=== PATIENT | male | born 1955 | race Two or more races ===

== ENCOUNTER 2017-09-17 12:39 | Emergency (ER) | payer OTHER ==
[2017-09-17 12:48] VITALS: BP 150/89; PULSE 61; TEMP 97.7; BMI 29.8
[2017-09-17 13:20] LABS: URINE APPEARANCE CLEAR; URINE BILIRUBIN NEGATIVE (<2.0 mg/dL); URINE COLOR LTYELLOW; URINE GLUCOSE (UA) 3+ (NEGATIVE); URINE KETONE NEGATIVE (NEGATIVE); URINE LEUK ESTERASE NEGATIVE (NEGATIVE); URINE NITRITE NEGATIVE (NEGATIVE); URINE PROTEIN NEGATIVE (NEGATIVE); URINE UROBILINOGEN NEGATIVE mg/dL (0.2-1.0)
--- NOTE | 2017-09-17 14:05 | PDOC ---
History of Present Illness - General Chief Complaint: Wound Stated Complaint: penile INFECTION Time Seen by Provider: 09/17/17 12:56 - History of Present Illness Initial Comments: 09/17/17 14:00 61-year-old male with 10 days of penis pain and lesions. He denies feavers, chills or night sweats, no nausea vomiting or abdominal pain no dysuria or discharge. Severity: moderate Past History - Past Medical History Allergies/Adverse Reactions: Allergies Allergy/AdvReac Type Severity Reaction Status Date / Time No Known Allergies Allergy Verified 09/17/17 12:48 Home Medications: Ambulatory Orders Aspirin [ASA -] 81 mg PO DAILY 01/21/12 Cetirizine HCl [All Day Allergy] 10 mg PO DAILY 01/21/12 Clopidogrel Bisulfate [Plavix -] 75 mg PO DAILY 01/21/12 Dodson-3 Acid Ethyl Esters [Lovaza -] 1,000 mg PO TID 01/21/12 Pantoprazole Sodium [Protonix -] 20 mg PO DAILY 01/21/12 Ranolazine [Ranexa] 500 mg PO BID 01/21/12 Atorvastatin Calcium 40 mg PO DAILY 03/10/16 Cyanocobalamin Vit B-12 Inj. [Vitamin B12 Injection -] 1,000 mcg IM WEEKLY 03/10 Linagliptin/Metformin HCl [Jentadueto 2.5 mg-850 mg Tab] 1 each PO BID 03/10/16 Losartan Potassium [Cozaar -] 25 mg PO DAILY 03/10/16 Acyclovir [Zovirax -] 400 mg PO TID #30 tablet 09/17/17 Cardiac Disorders: Yes (CAD, STENT PLACEMENTX4) COPD: No Diabetes: Yes HTN: Yes Hypercholesterolemia: Yes - Surgical History Cardiac Surgery: Yes (CAD, STENT PLACEMENTX4) - Suicide/Smoking/Psychosocial Hx Smoking Status: Yes Smoking History: Never smoked Years of Tobacco Use: 35 Have you smoked in the past 12 months: No Number of Cigarettes Smoked Daily: 0 Information on smoking cessation initiated: No Hx Alcohol Use: No Drug/Substance Use Hx: No Substance Use Type: None Review of Systems - Review of Systems Constitutional: Yes: See HPI *Physical Exam - Vital Signs Last Vital Signs Temp Pulse Resp BP Pulse Ox 97.7 F 61 16 150/89 96 09/17/17 12:44 09/17/17 12:44 09/17/17 12:44 09/17/17 12:44 09/17/17 12:44 - Physical Exam Comments: 09/17/17 14:01 General Appearance: Well-developed, well-nourished A&O 3 NAD Head: NC/AT Ears: External auditory canals are normal and clear Nose: Normal no discharge Neck: Supple nontender without lymphadenopathy masses Cardiac: S1 and S2 without murmurs no peripheral edema cyanosis or pallor; extremities are warm and well-perfused; capillary refill is less than 2 seconds without carotid bruits Lungs: CTA and Percussion no rales or rhonchi or wheezing breath sounds are full bilaterally Abdomen: Positive bowel sounds; soft nondistended, nontender, no guarding or rebound tenderness; no masses Musculoskeletal; Adequately aligned spine range of motion intact to spine and extremities Neurologic: Cranial nerves II-XII are grossly intact strength and sensation are symmetric and intact cerebellar testing is negative Skin: Normal color and temperature normal texture turgor no lesions or eruptions : Pesin is normal color and temperature, there is no discharge, there is a sun cm ulcerative lesion on the undersurface of the penis ED Treatment Course - ADDITIONAL ORDERS Additional order review: Laboratory Results 09/17/17 13:13 Urine Color Ltyellow Urine Appearance Clear Urine pH 5.0 Ur Specific [place] 1.030 Urine Protein Negative Urine Glucose (UA) 3+ H Urine Ketones Negative Urine Blood Negative Urine Nitrite Negative Urine Bilirubin Negative Urine Urobilinogen Negative Ur Leukocyte Esterase Negative *DC/Admit/Observation/Transfer Diagnosis at time of Disposition: HSV (herpes simplex virus) infection - Prescriptions Prescriptions: Acyclovir [Zovirax -] 400 mg PO TID #30 tablet - Referrals Referrals: Spenser Van MD [Primary Care Provider] - Valentina Foy MD [Staff Physician] - - Patient Instructions Additional Instructions: Follow up with infectious disease. Return to ER if symptoms worsen or go unresolved. - Post Discharge Activity
== END 2017-09-17 14:18 | disposition home or self-care (01) ==
LOC: JERFT 12:39
DX: A60.01 Herpesviral infection of penis (principal); I25.10 Atherosclerotic heart disease of native coronary artery without angina pectoris; I10 Essential (primary) hypertension; Z95.5 Presence of coronary angioplasty implant and graft; E78.00 Pure hypercholesterolemia, unspecified; E11.9 Type 2 diabetes mellitus without complications
CPT/HCPCS: 81003; 99281-25

== ENCOUNTER 2022-10-26 18:09 | Emergency (ER) | payer OTHER ==
[2022-10-26 18:15] VITALS: PULSE 72; RESP 19; TEMP 98.6; BMI 27.1
[2022-10-26] MEDS ORDERED: KETOROLAC TROMETHAMINE 15 MG/ML VIAL IM ONE (19:52)
[2022-10-26] MEDS ORDERED: ACETAMINOPHEN 500 MG TABLET (FP) PO ONE (19:52)
[2022-10-26] MEDS ORDERED: ACETAMINOPHEN 500 MG TABLET (FP) ONE (19:53)
[2022-10-26] MEDS ORDERED: KETOROLAC TROMETHAMINE 15 MG/ML VIAL ONE (19:53)
[2022-10-26 20:26] LABS: BASO % 0.4 % (0-2.0); EOS % 2.7 % (0-4.5); HEMATOCRIT 43.9 % (35.4-49); HEMOGLOBIN 15.2 GM/dL (11.7-16.9); LYMPH % 27.6 % (8-40); MCH 29.5 pg (25.7-33.7); MCHC 34.6 g/dl (32.0-35.9); MEAN CELL VOLUME 85.4 fl (80-96); MEAN PLT VOLUME 7.1 fl (7.5-11.1); NEUT % 61.3 % (42.8-82.8); PLATELET COUNT 219 10^3/uL (134-434); RBC 5.13 M/mm3 (4.00-5.60); RDW 13.5 % (11.9-15.9); WHITE BLOOD COUNT 7.6 K/mm3 (4.0-10.0)
[2022-10-26 20:27] LABS: PH,URINE 5.5 (5.0-8.0); URINE APPEARANCE CLEAR; URINE BILIRUBIN NEGATIVE (NEGATIVE); URINE COLOR YELLOW; URINE GLUCOSE (UA) 3+ (NEGATIVE); URINE KETONE NEGATIVE (NEGATIVE); URINE LEUK ESTERASE NEGATIVE (NEGATIVE); URINE NITRITE NEGATIVE (NEGATIVE); URINE PROTEIN NEGATIVE (NEGATIVE); URINE UROBILINOGEN 0.2 mg/dL (0.2-1.0)
[2022-10-26 20:41] LABS: POTASSIUM 4.4 mmol/L (3.5-5.1)
[2022-10-26 20:43] LABS: CALCIUM 9.2 mg/dL (8.5-10.1)
[2022-10-26 20:44] LABS: ALBUMIN 3.6 g/dl (3.4-5.0); BLOOD UREA NITROGEN 17.4 mg/dL (7-18)
[2022-10-26 20:47] LABS: CREATININE 0.9 mg/dL (0.55-1.3)
[2022-10-26 20:48] LABS: BILIRUBIN,TOTAL 0.3 mg/dL (0.2-1); TOT PROT 7.5 g/dl (6.4-8.2)
[2022-10-26 22:36] VITALS: BP 158/75
== END 2022-10-26 23:39 | disposition home or self-care (01) ==
LOC: JERFT 18:09
PROC: 3E0233Z Introduction of Anti-inflammatory into Muscle, Percutaneous Approach (ICD-10-PCS; principal; 2022-10-26)
DX: M54.50 Low back pain, unspecified (principal)
CPT/HCPCS: 36415; 71275-TC; 74174-TC; 80053; 81003; 85025; 87086; 99285-25; Q9967

== ENCOUNTER 2022-11-13 12:17 | Observation (INO) | payer OTHER ==
[2022-11-13 12:43] LABS: BASO % 0.6 % (0-2.0); EOS % 1.7 % (0-4.5); HEMATOCRIT 44.1 % (35.4-49); HEMOGLOBIN 14.7 GM/dL (11.7-16.9); LYMPH % 15.7 % (8-40); MCH 29.3 pg (25.7-33.7); MCHC 33.3 g/dl (32.0-35.9); MEAN CELL VOLUME 87.9 fl (80-96); MEAN PLT VOLUME 7.5 fl (7.5-11.1); MONO % 8.7 % (3.8-10.2); NEUT % 73.3 % (42.8-82.8); PLATELET COUNT 231 10^3/uL (134-434); RBC 5.02 M/mm3 (4.00-5.60); RDW 13.2 % (11.9-15.9); WHITE BLOOD COUNT 8.6 K/mm3 (4.0-10.0)
[2022-11-13 12:50] LABS: INR 1.01 (0.83-1.09); PROTHROMBIN TIME (PATIENT) 11.7 SEC (9.7-13.0)
[2022-11-13 13:12] LABS: POTASSIUM 4.6 mmol/L (3.5-5.1)
[2022-11-13 13:14] LABS: CALCIUM 9.1 mg/dL (8.5-10.1)
[2022-11-13 13:15] LABS: ALBUMIN 3.5 g/dl (3.4-5.0); BLOOD UREA NITROGEN 13.8 mg/dL (7-18)
[2022-11-13 13:19] LABS: BILIRUBIN,TOTAL 0.4 mg/dL (0.2-1)
[2022-11-13 13:54] LABS: N-TERMINAL BNP 602.1 pg/ml (5-125)
[2022-11-13] MEDS: ATENOLOL 25 MG TABLET (FP) PO SCH (19:25)
[2022-11-13] MEDS ORDERED: ATENOLOL 25 MG TABLET (FP) ONE (19:30)
[2022-11-13] MEDS ORDERED: ALBUTEROL SO4 HFA INHALER IH PRN (20:12)
[2022-11-13] MEDS ORDERED: INSULIN (NOVOLOG) ASPART 100 UNITS/ML 10ML VIAL ONE (21:23)
[2022-11-13] MEDS: INSULIN SLIDING SCALE (NOVOLOG) 1 VIAL SQ SCH (21:25)
[2022-11-13] MEDS: ATORVASTATIN CA 40 MG TABLET (FP) PO SCH (21:25)
[2022-11-13 22:26] VITALS: BMI 27.9
[2022-11-14] MEDS: INSULIN SLIDING SCALE (NOVOLOG) 1 VIAL SQ SCH ×4 (06:19→21:42)
[2022-11-14] MEDS: ATENOLOL 25 MG TABLET (FP) PO SCH (09:56)
[2022-11-14] MEDS: RANOLAZINE E.R. 500 MG TABLET (FP) PO SCH ×2 (09:56→21:42)
[2022-11-14] MEDS: LORATADINE 10 MG TABLET PO SCH (09:57)
[2022-11-14] MEDS: ASPIRIN 81 MG CHEWABLE TABLETS PO SCH (09:57)
[2022-11-14] MEDS: CLOPIDOGREL BISULFATE 75 MG TABLET (FP) PO SCH (09:57)
[2022-11-14] MEDS: FAMOTIDINE 20 MG TABLET PO SCH ×2 (09:57→21:42)
[2022-11-14] MEDS: POTASSIUM CHLORIDE 10 MEQ in SODIUM CHLORIDE 0.45% 1,000 ML IVPB SCH (11:32)
[2022-11-14 12:49] LABS: POTASSIUM 4.7 mmol/L (3.5-5.1)
[2022-11-14 12:50] LABS: CALCIUM 9.7 mg/dL (8.5-10.1)
[2022-11-14 12:51] LABS: BLOOD UREA NITROGEN 12.2 mg/dL (7-18)
[2022-11-14 12:54] LABS: CREATININE 0.8 mg/dL (0.55-1.3)
[2022-11-14 13:02] LABS: BASO % 0.5 % (0-2.0); HEMATOCRIT 44.8 % (35.4-49); HEMOGLOBIN 14.8 GM/dL (11.7-16.9); LYMPH % 17.5 % (8-40); MCH 29.3 pg (25.7-33.7); MCHC 33.1 g/dl (32.0-35.9); MEAN CELL VOLUME 88.6 fl (80-96); MEAN PLT VOLUME 7.7 fl (7.5-11.1); MONO % 9.3 % (3.8-10.2); NEUT % 70.7 % (42.8-82.8); PLATELET COUNT 231 10^3/uL (134-434); RBC 5.05 M/mm3 (4.00-5.60); RDW 13.4 % (11.9-15.9); WHITE BLOOD COUNT 7.8 K/mm3 (4.0-10.0)
[2022-11-14] MEDS ORDERED: INSULIN (NOVOLOG) ASPART 100 UNITS/ML 10ML VIAL ONE (21:41)
[2022-11-14] MEDS: ATORVASTATIN CA 40 MG TABLET (FP) PO SCH (21:42)
[2022-11-15] MEDS: POTASSIUM CHLORIDE 10 MEQ in SODIUM CHLORIDE 0.45% 1,000 ML IVPB SCH ×2 (04:00→15:54)
[2022-11-15] MEDS: INSULIN SLIDING SCALE (NOVOLOG) 1 VIAL SQ SCH ×4 (06:16→21:59)
[2022-11-15] MEDS: ATENOLOL 25 MG TABLET (FP) PO SCH (08:00)
[2022-11-15] MEDS ORDERED: REGADENOSON 0.4 MG/5 ML PRE-FILLED SYRINGE IVPUSH ONE ×2 (09:28→09:30)
[2022-11-15] MEDS: CLOPIDOGREL BISULFATE 75 MG TABLET (FP) PO SCH (11:36)
[2022-11-15] MEDS: ASPIRIN 81 MG CHEWABLE TABLETS PO SCH (11:36)
[2022-11-15] MEDS: LORATADINE 10 MG TABLET PO SCH (11:36)
[2022-11-15] MEDS: RANOLAZINE E.R. 500 MG TABLET (FP) PO SCH ×2 (11:36→21:52)
[2022-11-15] MEDS: FAMOTIDINE 20 MG TABLET PO SCH ×2 (11:36→21:52)
[2022-11-15] MEDS: LOSARTAN POTASSIUM 50 MG TABLET PO SCH (11:37)
[2022-11-15] MEDS ORDERED: INSULIN (NOVOLOG) ASPART 100 UNITS/ML 10ML VIAL ONE ×2 (16:23→21:59)
[2022-11-15] MEDS: ATORVASTATIN CA 40 MG TABLET (FP) PO SCH (21:52)
[2022-11-16] MEDS: POTASSIUM CHLORIDE 10 MEQ in SODIUM CHLORIDE 0.45% 1,000 ML IVPB SCH (06:19)
[2022-11-16] MEDS ORDERED: INSULIN (NOVOLOG) ASPART 100 UNITS/ML 10ML VIAL ONE (06:20)
[2022-11-16] MEDS: INSULIN SLIDING SCALE (NOVOLOG) 1 VIAL SQ SCH (06:20)
[2022-11-16 06:25] VITALS: RESP 18
[2022-11-16 09:01] VITALS: BP 146/79; PULSE 72; TEMP 97.7
[2022-11-16] MEDS: FAMOTIDINE 20 MG TABLET PO SCH (09:21)
[2022-11-16] MEDS: RANOLAZINE E.R. 500 MG TABLET (FP) PO SCH (09:21)
[2022-11-16] MEDS: ASPIRIN 81 MG CHEWABLE TABLETS PO SCH (09:21)
[2022-11-16] MEDS: LORATADINE 10 MG TABLET PO SCH (09:21)
[2022-11-16] MEDS: LOSARTAN POTASSIUM 50 MG TABLET PO SCH (09:21)
[2022-11-16] MEDS: CLOPIDOGREL BISULFATE 75 MG TABLET (FP) PO SCH (09:22)
== END 2022-11-16 11:56 | disposition home or self-care (01) ==
LOC: JER 12:17 → JERBED 15:13 → J4W 21:04
PROVIDERS: ADMIT Family Medicine; ATTEND Family Medicine
PROC: 3E013VG Introduction of Insulin into Subcutaneous Tissue, Percutaneous Approach (ICD-10-PCS; principal; 2022-11-13)
PROC: 3E0337Z Introduction of Electrolytic and Water Balance Substance into Peripheral Vein, Percutaneous Approach (ICD-10-PCS; 2022-11-13)
DX: I25.10 Atherosclerotic heart disease of native coronary artery without angina pectoris (principal); I11.9 Hypertensive heart disease without heart failure; E78.5 Hyperlipidemia, unspecified; E11.9 Type 2 diabetes mellitus without complications
CPT/HCPCS: 0241U-QW; 36415; 71045-TC-FY; 71275-TC; 78452-TC; 80048; 80053; 80061; 82962; 83036; 83880; 84484; 85025; 85610; 85651; 86038; 86140; 93005; 93010; 93017; 93306-TC; 96372; 99285-25; A9502; G0378; J2785; Q9967

== ENCOUNTER 2024-03-27 13:28 | Inpatient (IN) | payer OTHER ==
[2024-03-27 15:10] LABS: BASO % 0.4 % (0-2.0); EOS % 2.4 % (0-4.5); HEMATOCRIT 42.8 % (35.4-49); LYMPH % 17.1 % (8-40); MCH 27.2 pg (25.7-33.7); MCHC 32.7 g/dl (32.0-35.9); MEAN CELL VOLUME 83.4 fl (80-96); MEAN PLT VOLUME 7.7 fl (7.5-11.1); MONO % 9.7 % (3.8-10.2); NEUT % 70.4 % (42.8-82.8); PLATELET COUNT 180 10^3/uL (134-434); RBC 5.13 M/mm3 (4.00-5.60); RDW 15.3 % (11.9-15.9); WHITE BLOOD COUNT 7.2 K/mm3 (4.0-10.0)
[2024-03-27 15:45] LABS: POTASSIUM 4.7 mmol/L (3.5-5.1)
[2024-03-27 15:47] LABS: ALBUMIN 3.3 g/dl (3.4-5.0); BLOOD UREA NITROGEN 21.4 mg/dL (7-18); CALCIUM 8.9 mg/dL (8.5-10.1)
[2024-03-27 15:52] LABS: BILIRUBIN,TOTAL 0.5 mg/dL (0.2-1); TOT PROT 6.6 g/dl (6.4-8.2)
[2024-03-27 15:55] LABS: N-TERMINAL BNP 1294.3 pg/ml (5-125)
[2024-03-27 16:27] LABS: HIV INTERPRETATION NEGATIVE (NEGATIVE)
[2024-03-27] MEDS ORDERED: FUROSEMIDE 40 MG/4 ML INJECTABLE VIAL ONE (16:35)
[2024-03-27] MEDS: FUROSEMIDE 40 MG/4 ML INJECTABLE VIAL IVPUSH ONE (16:42)
[2024-03-27] MEDS: ATORVASTATIN CA 40 MG TABLET (FP) PO SCH (23:10)
[2024-03-28 06:59] LABS: BASO % 0.6 % (0-2.0); EOS % 3.3 % (0-4.5); HEMATOCRIT 42.7 % (35.4-49); HEMOGLOBIN 13.8 GM/dL (11.7-16.9); LYMPH % 20.7 % (8-40); MCHC 32.3 g/dl (32.0-35.9); MEAN CELL VOLUME 83.6 fl (80-96); MEAN PLT VOLUME 7.7 fl (7.5-11.1); MONO % 10.2 % (3.8-10.2); NEUT % 65.2 % (42.8-82.8); PLATELET COUNT 170 10^3/uL (134-434); RBC 5.11 M/mm3 (4.00-5.60); RDW 15.2 % (11.9-15.9); WHITE BLOOD COUNT 8.1 K/mm3 (4.0-10.0)
[2024-03-28 07:34] LABS: POTASSIUM 4.1 mmol/L (3.5-5.1)
[2024-03-28 07:37] LABS: ALBUMIN 3.2 g/dl (3.4-5.0); BLOOD UREA NITROGEN 20.1 mg/dL (7-18); CALCIUM 8.8 mg/dL (8.5-10.1)
[2024-03-28 07:41] LABS: CREATININE 0.8 mg/dL (0.55-1.3)
[2024-03-28 07:42] LABS: BILIRUBIN,TOTAL 0.6 mg/dL (0.2-1); TOT PROT 6.1 g/dl (6.4-8.2)
[2024-03-28] MEDS: LOSARTAN POTASSIUM 50 MG TABLET PO SCH (09:35)
[2024-03-28] MEDS: ATENOLOL 25 MG TABLET (FP) PO SCH (09:35)
[2024-03-28] MEDS: CLOPIDOGREL BISULFATE 75 MG TABLET (FP) PO SCH (09:35)
[2024-03-28] MEDS: FUROSEMIDE 40 MG/4 ML INJECTABLE VIAL IVPUSH SCH (09:36)
[2024-03-28] MEDS: amLODIPine BESYLATE 5 MG TABLET (FP) PO SCH (14:14)
[2024-03-28] MEDS: EMPAGLIFLOZIN (JARDIANCE) 10 MG TABLET PO SCH (22:30)
[2024-03-29] MEDS: amLODIPine BESYLATE 10 MG TABLET (FP) PO SCH (09:36)
[2024-03-29] MEDS: ASPIRIN COATED 81 MG TABLET.EC PO SCH (09:36)
[2024-03-30] MEDS: FUROSEMIDE 40 MG/4 ML INJECTABLE VIAL IVPUSH SCH (06:36)
[2024-03-30 08:37] LABS: POTASSIUM 4.3 mmol/L (3.5-5.1)
[2024-03-30 08:59] LABS: BLOOD UREA NITROGEN 15.5 mg/dL (7-18); CALCIUM 9.3 mg/dL (8.5-10.1); MAGNESIUM 1.9 mg/dL (1.8-2.4)
[2024-03-30 11:50] VITALS: BMI 28.2
[2024-03-30] MEDS: HEPARIN NA (PORCINE) 5,000 UNITS/ML 1ML VIAL SQ SCH (21:44)
[2024-03-31 07:40] LABS: CALCIUM 9.2 mg/dL (8.5-10.1)
[2024-03-31 07:42] LABS: BLOOD UREA NITROGEN 20.4 mg/dL (7-18); MAGNESIUM 1.9 mg/dL (1.8-2.4)
[2024-03-31 07:44] LABS: CREATININE 1.1 mg/dL (0.55-1.3)
[2024-03-31] MEDS ORDERED: FUROSEMIDE 40 MG/4 ML INJECTABLE VIAL ONE (12:31)
[2024-03-31] MEDS: FUROSEMIDE 40 MG/4 ML INJECTABLE VIAL IVPUSH ONE (12:33)
[2024-03-31 14:29] VITALS: BP 118/65; PULSE 68; RESP 20; TEMP 98.1
== END 2024-03-31 16:21 | disposition home or self-care (01) | DRG 291 ==
LOC: JER 13:28 → JERBED 16:17 → J6S 18:27 → J4W 19:09
PROVIDERS: ADMIT Internal Medicine; ATTEND Internal Medicine
DX: I11.0 Hypertensive heart disease with heart failure (principal); I50.33 Acute on chronic diastolic (congestive) heart failure; I25.10 Atherosclerotic heart disease of native coronary artery without angina pectoris; E78.5 Hyperlipidemia, unspecified; E11.9 Type 2 diabetes mellitus without complications; Z79.84 Long term (current) use of oral hypoglycemic drugs; I35.0 Nonrheumatic aortic (valve) stenosis
CPT/HCPCS: 0241U-QW; 36415; 71045-TC-FY; 80048; 80053; 80061; 82962; 83036; 83735; 83880; 84484; 85025; 86803; 87389; 93005; 93010; 93306-TC; 99285-25; J1644